=== PATIENT | male | born 1960 | race Caucasian/White ===

== ENCOUNTER → 2019-06-10 | Outpatient (CLI) | payer BC ==
--- NOTE | 2019-06-10 09:04 | PCVCIMAG ---
APPROVED REPORT Study performed: 06/10/2019 07:57:53 EXAM: Comprehensive 2D, Doppler, and color-flow Echocardiogram Patient Location: Echo lab Status: routine BSA: 2.07 HR: 74 bpmBP: 120/80 mmHg Rhythm: NSR Other Information Study Quality: Fair Indications Dilated ascending aorta. 2D Dimensions IVSd: 10.80 (7-11mm)LVOT Diam: 17.77 (18-24mm) LVDd: 34.75 mm PWd: 12.94 (7-11mm)Ascending Ao: 45.52 (22-36mm) LVDs: 27.79 (25-40mm) Left Atrium: 34.36 (27-40mm) Aortic Root: 39.16 mm LV Single Plane 4CH: 67.92 % LV Single Plane 2CH: 57.64 % Biplane EF: 62.7 % Volumes Left Atrial Volume (Systole) Single Plane 4CH: 37.57 mLSingle Plane 2CH: 26.16 mL LA ESV Index: 16.00 mL/m2 Aortic Valve AoV Peak Brent.: 1.76 m/s AO Peak Gr.: 12.37 mmHgLVOT Max P.75 mmHg LVOT Max V: 1.11 m/s ERNST Vmax: 1.56 cm2 AI Vmax: 3.35 m/s AI [place]: 2.27 m/s2 AI PHT: 427.42 ms Mitral Valve E/A Ratio: 0.8 MV Decel. Time: 276.01 ms MV E Max Brent.: 0.58 m/s MV A Brent.: 0.71 m/s IVRT: 121.11 ms TDI E/Lateral E': 7.25E/Medial E': 11.60 Medial E' Brent.: 0.05 m/s Lateral E' Brent.: 0.08 m/s Pulmonary Valve PV Peak Gr.: 2.48 mmHg Pulmonary Vein P Vein S: 0.94 m/sP Vein A: 0.26 m/s P Vein D: 0.38 m/sP Vein A Dur.: 110.7 msec P Vein S/D Ratio: 2.47 Left Ventricle The left ventricle is normal size. There is normal LV segmental wall motion. Mild to moderate concentric left ventricular hypertrophy. Left ventricular systolic function is normal. The left ventricular ejection fraction is within the normal range. LVEF is 60-65%. Mild diastolic dysfunction is present (impaired relaxation pattern). Right Ventricle The right ventricle is normal size. The right ventricular systolic function is normal. Atria The left atrium size is normal. The right atrium size is normal. Aortic Valve Aortic valve is trileaflet, mildly sclerotic. Trace aortic regurgitation. There is no aortic valvular stenosis. Mitral Valve The mitral valve is normal in structure. There is no mitral valve regurgitation noted. No evidence of mitral valve stenosis. Tricuspid Valve The tricuspid valve is normal in structure. There is no tricuspid valve regurgitation noted. Pulmonic Valve The pulmonary valve is normal in structure. There is no pulmonic valvular regurgitation. Great Vessels The aortic root is normal in size. The ascending aorta is dilated (4.9cm). IVC is normal in size and collapses >50% with inspiration. Pericardium There is no pericardial effusion. <Conclusion> Left ventricular systolic function is normal. There is normal LV segmental wall motion. LVEF is 60-65%. Mild diastolic dysfunction Aortic valve is trileaflet, mildly sclerotic. Trace aortic regurgitation, no stenosis. The mitral valve is normal in structure. No mitral valve regurgitation Pulmononary artery pressure could not be reliably ascertained. The ascending aorta is dilated (4.9cm). There is no pericardial effusion.
== END | disposition home or self-care (01) ==
LOC: PCVCIMAG 09:26
PROVIDERS: ATTEND Family Medicine
DX: I35.8 Other nonrheumatic aortic valve disorders (principal); I71.2 Thoracic aortic aneurysm, without rupture; G25.0 Essential tremor; E78.2 Mixed hyperlipidemia; E11.9 Type 2 diabetes mellitus without complications; Z68.29 Body mass index [BMI] 29.0-29.9, adult
CPT/HCPCS: 93306